=== PATIENT | male | born 1945 | race Caucasian/White ===

== ENCOUNTER 2016-12-02 08:00 | Outpatient (CLI) | payer MEDICARE, OTHER | END 2016-12-02 08:01 | disposition home or self-care (01) | DX: I10 Essential (primary) hypertension (principal); Z12.5 Encounter for screening for malignant neoplasm of prostate; E78.2 Mixed hyperlipidemia; Z79.899 Other long term (current) drug therapy | CPT/HCPCS: 80053; 80061; 83036; 85025; G0103 ==

== ENCOUNTER 2018-04-01 08:09 | Emergency (ER) | payer MEDICARE, OTHER ==
[2018-04-01 08:23] VITALS: BP 146/90
[2018-04-01] MEDS ORDERED: DEXAMETHASONE 10 MG/ML VIAL PO STA (08:50)
--- NOTE | 2018-04-01 08:52 | ED Physician Documentation ---
PD HPI SKIN - Stated complaint Stated Complaint: R ARM RASHES - Chief complaint Chief Complaint: Wound - History obtained from History obtained from: Patient - History of Present Illness Timing - onset: Yesterday Timing - duration: Days (1) Timing - details: Gradual onset, Still present Location: RUE Quality / character: Itchy, Raised, Swelling Improved by: Other (liquid bandaid) Associated symptoms: No: Fever, Myalgias, Joint pain Contributing factors: Insect bite /sting Similar symptoms before: Has not had sx before Recently seen: Not recently seen - Additional information Additional information: 73-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 He did use some liquid Band-Aid on this to help with the itching which seemed to work. Review of Systems Constitutional: denies: Fever Ears: denies: Ear pain Nose: denies: Congestion Throat: denies: Sore throat Respiratory: denies: Cough GI: denies: Vomiting Skin: reports: Rash Musculoskeletal: reports: Extremity pain. denies: Neck pain, Back pain PD PAST MEDICAL HISTORY - Past Medical History Cardiovascular: Hypertension Respiratory: None Endocrine/Autoimmune: None GI: None : None HEENT: Chronic hearing loss Psych: Claustrophobia Musculoskeletal: Osteoarthritis, Gout Derm: None - Past Surgical History Ortho:  - Present Medications Home Medications: Ambulatory Orders Medication Instructions Recorded Confirmed Hydrochlorothiazide 12.5 mg PO DAILY 04/11/14 04/11/14 - Allergies Allergies/Adverse Reactions: Allergies Allergy/AdvReac Type Severity Reaction Status Date / Time No Known Drug Allergies Allergy Verified 04/11/14 09:21 PD ED PE NORMAL - Vitals Vital signs reviewed: Yes (hypertensive ) - General General: Alert and oriented X 3, No acute distress, Well developed/nourished - HEENT HEENT: Atraumatic, PERRL, EOMI - Respiratory Respiratory: No respiratory distress - Derm Derm: Normal color, Warm and dry - Extremities Extremities: No deformity, No edema, Other (over the volar surface of the forearm there is a non-specific "rash" with superficial erythema slightly raised and irregular. There is a central area of a raised bump that is also non- specific. ) - Neuro Neuro: No motor deficit, No sensory deficit Eye Opening: Spontaneous Motor: Obeys Commands Verbal: Oriented GCS Score: 15 - Psych Psych: Normal mood, Normal affect Results - Vitals Vitals: Vital Signs - 24 hr 04/01/18 08:21 Temperature 36.0 C L Heart Rate 68 Respiratory 18 Rate Blood Pressure 146/90 H O2 Saturation 99 Oxygen O2 Source Room air PD MEDICAL DECISION MAKING - ED course Complexity details: considered differential, d/w patient ED course: 73-year-old male moving some plants yesterday as developed a rash on his right forearm this most closely resembles a contact dermatitis and here in the emergency department he is administered dexamethasone 10 mg orally and he is instructed to clean the area and use hydrocortisone cream and Benadryl for the itching. - Sepsis Event Vital Signs: Vital Signs - 24 hr 04/01/18 08:21 Temperature 36.0 C L Heart Rate 68 Respiratory 18 Rate Blood Pressure 146/90 H O2 Saturation 99 Oxygen O2 Source Room air Departure - Departure Disposition: 01 Home, Self Care Clinical Impression: Contact dermatitis Qualifiers: Contact dermatitis type: irritant Contact dermatitis trigger: non-food plants Qualified Code(s): L24.7 - Irritant contact dermatitis due to plants, except food Instructions: ED Dermatitis Contact Follow-Up: Yohana Grant ARNP [Primary Care Provider] - Discharge Date/Time: 04/01/18 09:12
== END 2018-04-01 09:12 | disposition home or self-care (01) ==
LOC: ED 08:09
DX: L24.7 Irritant contact dermatitis due to plants, except food (principal); I10 Essential (primary) hypertension
CPT/HCPCS: 99282

== ENCOUNTER 2019-07-07 16:49 | Outpatient (CLI) | payer MEDICARE, OTHER ==
[2019-07-07 17:13] LABS: BASOPHILS # (AUTO) 0.1 10^3/uL (0.0-0.1); BASOPHILS % (AUTO) 0.8 %; EOSINOPHILS # (AUTO) 0.1 10^3/uL (0.0-0.7); EOSINOPHILS % (AUTO) 1.8 %; HGB - HEMOGLOBIN 13.8 g/dL (14.0-18.0); LYMPHOCYTES # (AUTO) 2.6 10^3/uL (1.5-3.5); LYMPHOCYTES % (AUTO) 35.9 %; MEAN CORPUSCULAR HEMOGLOBIN 29.6 pg (27.0-31.0); MEAN CORPUSCULAR HGB CONC 32.8 g/dL (32.0-36.0); MEAN CORPUSCULAR VOLUME 90.3 fL (80.0-94.0); MEAN PLATELET VOLUME 10.3 fL (7.4-11.4); MONOCYTES # (AUTO) 0.7 10^3/uL (0.0-1.0); MONOCYTES % (AUTO) 10.2 %; NEUTROPHILS # (AUTO) 3.7 10^3/uL (1.5-6.6); PLT - PLATELET COUNT 148 10^3/uL (130-450); RED BLOOD COUNT 4.66 10^6/uL (4.70-6.10); RED CELL DISTRIBUTION WIDTH 13.1 % (12.0-15.0); WHITE BLOOD COUNT 7.3 x10^3/uL (4.8-10.8)
[2019-07-07 17:25] LABS: ALBUMIN 4.9 g/dL (3.2-5.5); ALBUMIN/GLOBULIN RATIO 1.6 (1.0-2.2); BILIRUBIN,TOTAL 0.7 mg/dL (0.2-1.0); CALCIUM 9.8 mg/dL (8.5-10.3); CREATININE 0.8 mg/dL (0.6-1.2); TOTAL PROTEIN 7.9 g/dL (6.7-8.2)
[2019-07-07 18:03] LABS: THYROID STIMULATING HORMONE 1.54 uIU/mL (0.34-5.60)
[2019-07-07 18:05] LABS: FREE T4 (FREE THYROXINE) 0.78 ng/dL (0.58-1.64)
--- NOTE | 2019-07-08 16:49 | XRAY Report ---
Reason: RT HIP PAIN Procedure Date: 07/07/2019 Accession Number: [id number] / [id number] Procedure: XR - Hip w/Pelvis 2-3V RT CPT Code: FULL RESULT: EXAM: RIGHT HIP RADIOGRAPHY EXAM DATE: 07/07/2019 05:53 PM. HISTORY: Chronic right hip pain COMPARISONS: None. TECHNIQUE: AP pelvis, modified Dean, and frogleg lateral views. FINDINGS: Bones: No fractures or bone lesion. Femoral head/neck offset is decreased bilaterally. Joints: No dislocation. The hip joint space is mildly to severely diminished bilaterally, greater in the right hip. Soft Tissues: No soft tissue swelling. 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 RADIA
== END 2019-07-07 16:50 | disposition home or self-care (01) ==
LOC: DI 16:49
PROVIDERS: ATTEND Family Medicine
DX: M16.0 Bilateral primary osteoarthritis of hip (principal); M25.852 Other specified joint disorders, left hip; M25.851 Other specified joint disorders, right hip; Z00.00 Encounter for general adult medical examination without abnormal findings
CPT/HCPCS: 36415; 80053; 84439; 84443; 85025

== ENCOUNTER 2019-07-22 13:57 | Emergency (ER) | payer MEDICARE, OTHER ==
[2019-07-22 14:06] VITALS: BP 139/83
--- NOTE | 2019-07-22 15:00 | ED Physician Documentation ---
History of Present Illness - Stated complaint Stated Complaint: ARM WOUND - Chief complaint Chief Complaint: Wound - History obtained from History obtained from: Patient - History of Present Illness Timing: Today Pain level max: 2 Pain level now: 2 - Additonal information Additional information: Patient states that he thinks he may have a thorn in the right arm. Noted swelling earlier today. Seems to have resolved now. Nothing makes it better or worse Review of Systems Constitutional: denies: Fever PD PAST MEDICAL HISTORY - Past Medical History Past Medical History: Yes Cardiovascular: Hypertension Respiratory: None Endocrine/Autoimmune: None GI: None : None HEENT: Chronic hearing loss Psych: Claustrophobia Musculoskeletal: Osteoarthritis, Gout Derm: None - Past Surgical History Past Surgical History: No Ortho:  - Present Medications Home Medications: Ambulatory Orders Medication Instructions Recorded Confirmed Hydrochlorothiazide 12.5 mg PO DAILY 04/11/14 04/11/14 - Allergies Allergies/Adverse Reactions: Allergies Allergy/AdvReac Type Severity Reaction Status Date / Time No Known Drug Allergies Allergy Verified 07/22/19 14:05 - Social History Does the pt smoke?: No Smoking Status: Never smoker Does the pt drink ETOH?: Yes Does the pt have substance abuse?: No - Immunizations Immunizations are current?: No - POLST Patient has POLST: No PD ED PE NORMAL - Vitals Vital signs reviewed: Yes - General General: Alert and oriented X 3, No acute distress - Derm Derm: Warm and dry - Extremities Extremities: Other (Right forearm with a small, nonbleeding wound. Pinpoint. No swelling or palpable foreign bodies. Neurovascular intact) - Neuro Neuro: Alert and oriented X 3 Results - Vitals Vitals: Oxygen O2 Source Room air PD MEDICAL DECISION MAKING - ED course Complexity details: considered differential, d/w patient ED course: No evidence of embedded thorn or other foreign body. Ultrasound was applied and no visible foreign body seen. No palpable foreign bodies. Warnings of infection and instructions on wound care given at bedside. Patient counseled regarding signs and symptoms for which I believe and urgent re-evaluation would be necessary. Patient with good understanding of and agreement to plan and is comfortable going home at this time This document was made in part using voice recognition software. While efforts are made to proofread this document, sound alike and grammatical errors may occur. Tdap given Departure - Departure Disposition: Home, Self Care Clinical Impression: Visit for wound check Condition: Good Instructions: ED Wound Care Follow-Up: Gonzalo Salazar MD [Primary Care Provider] - Comments: Return if you worsen. Return especially if you notice redness, swelling or drainage from the wound. Discharge Date/Time: 07/22/19 15:13
[2019-07-22] MEDS ORDERED: TETANUS/DIPHTHERIA/PERTUSSIS 0.5 ML SYRINGE IM ONE (15:06)
== END 2019-07-22 15:13 | disposition home or self-care (01) ==
LOC: ED 13:57
DX: S51.801A Unspecified open wound of right forearm, initial encounter (principal); W45.8XXA Other foreign body or object entering through skin, initial encounter; Y93.H2 Activity, gardening and landscaping; Y92.007 Garden or yard of unspecified non-institutional (private) residence as the place of occurrence of the external cause; Z23 Encounter for immunization; I10 Essential (primary) hypertension
CPT/HCPCS: 90471; 99282

== ENCOUNTER 2021-04-18 08:00 | Outpatient (CLI) | payer MEDICARE, OTHER ==
[2021-04-18 12:19] LABS: BASOPHILS % (AUTO) 0.7 %; EOSINOPHILS # (AUTO) 0.1 10^3/uL (0.0-0.7); EOSINOPHILS % (AUTO) 1.7 %; HCT - HEMATOCRIT 42.9 % (42.0-52.0); LYMPHOCYTES # (AUTO) 1.9 10^3/uL (1.5-3.5); LYMPHOCYTES % (AUTO) 32.9 %; MEAN CORPUSCULAR HGB CONC 32.6 g/dL (32.0-36.0); MEAN CORPUSCULAR VOLUME 92.1 fL (80.0-94.0); MEAN PLATELET VOLUME 10.6 fL (7.4-11.4); MONOCYTES # (AUTO) 0.5 10^3/uL (0.0-1.0); MONOCYTES % (AUTO) 8.5 %; NEUTROPHILS # (AUTO) 3.3 10^3/uL (1.5-6.6); PLT - PLATELET COUNT 156 10^3/uL (130-450); RED BLOOD COUNT 4.66 10^6/uL (4.70-6.10); RED CELL DISTRIBUTION WIDTH 13.2 % (12.0-15.0); WHITE BLOOD COUNT 5.9 x10^3/uL (4.8-10.8)
[2021-04-18 12:51] LABS: THYROID STIMULATING HORMONE 0.79 uIU/mL (0.34-5.60)
[2021-04-18 12:54] LABS: ALBUMIN 4.4 g/dL (3.2-5.5); ALBUMIN/GLOBULIN RATIO 1.3 (1.0-2.2); ALKALINE PHOSPHATASE 64 IU/L (42-121); ALT ALANINE AMINOTRANSFERASE 26 IU/L (10-60); AST ASPARTATE AMINOTRANSFERASE 22 IU/L (10-42); BILIRUBIN,TOTAL 0.8 mg/dL (0.2-1.0); BUN - BLOOD UREA NITROGEN 17 mg/dL (6-20); CALCIUM 9.3 mg/dL (8.5-10.3); CARBON DIOXIDE - CO2 26 mmol/L (21-32); CHLORIDE 105 mmol/L (101-111); CHOL/HDL RATIO 4.7 (<5.0); CHOLESTEROL 183 mg/dL; CREATININE 0.8 mg/dL (0.6-1.2); GFR - MDRD 94 (>89); GLUCOSE 118 mg/dL (70-100); HDL CHOLESTEROL 39 mg/dL; LDL CHOLESTEROL,CALCULATED 103 mg/dL; LDL/HDL RATIO 2.6 (<3.6); POTASSIUM 4.6 mmol/L (3.5-5.0); SODIUM 140 mmol/L (135-145); TOTAL PROTEIN 7.7 g/dL (6.7-8.2); TRIGLYCERIDES 203 mg/dL; VLDL CHOLESTEROL 41 mg/dL
== END 2021-04-18 23:59 | disposition home or self-care (01) ==
LOC: LAB.WCP 08:00
PROVIDERS: ATTEND Family Medicine
DX: Z00.00 Encounter for general adult medical examination without abnormal findings (principal); M16.11 Unilateral primary osteoarthritis, right hip
CPT/HCPCS: 36415; 80053; 80061; 84443; 85025; G0103; 83721; 84153

== ENCOUNTER 2022-03-26 14:55 | Emergency (ER) | payer MEDICARE ==
[2022-03-26 15:24] VITALS: BP 147/85
[2022-03-26 15:24] LABS: BASOPHILS # (AUTO) 0.1 10^3/uL (0.0-0.1); EOSINOPHILS # (AUTO) 0.2 10^3/uL (0.0-0.7); EOSINOPHILS % (AUTO) 2.3 %; HCT - HEMATOCRIT 42.2 % (42.0-52.0); HGB - HEMOGLOBIN 14.3 g/dL (14.0-18.0); LYMPHOCYTES # (AUTO) 2.4 10^3/uL (1.5-3.5); LYMPHOCYTES % (AUTO) 33.8 %; MEAN CORPUSCULAR HEMOGLOBIN 30.5 pg (27.0-31.0); MEAN CORPUSCULAR HGB CONC 33.9 g/dL (32.0-36.0); MEAN PLATELET VOLUME 10.5 fL (7.4-11.4); MONOCYTES # (AUTO) 0.5 10^3/uL (0.0-1.0); MONOCYTES % (AUTO) 7.2 %; NEUTROPHILS # (AUTO) 3.9 10^3/uL (1.5-6.6); NEUTROPHILS % (AUTO) 55.6 %; PLT - PLATELET COUNT 175 10^3/uL (130-450); RED BLOOD COUNT 4.69 10^6/uL (4.70-6.10); WHITE BLOOD COUNT 7.1 x10^3/uL (4.8-10.8)
--- NOTE | 2022-03-26 15:24 | XRAY Report ---
PROCEDURE: Chest 1 View X-Ray INDICATIONS: Chest Pain TECHNIQUE: One view of the chest was acquired. COMPARISON: Chest x-ray 01/12/2016 FINDINGS: Surgical changes and devices: None. Lungs and pleura: No pleural effusions or pneumothorax. Lungs are clear. Mediastinum: Mediastinal contours appear normal. Heart size is enlarged. Bones and chest wall: No suspicious bony lesions. Overlying soft tissues appear unremarkable. IMPRESSION: No acute pulmonary process. Reviewed by: Chelly Abraham MD on 03/26/2022 3:23 PM PDT Approved by: Chelly Abraham MD on 03/26/2022 3:23 PM PDT Station ID: [id number]
[2022-03-26 15:39] LABS: ALBUMIN 4.6 g/dL (3.2-5.5); ALBUMIN/GLOBULIN RATIO 1.4 (1.0-2.2); BILIRUBIN,TOTAL 0.6 mg/dL (0.2-1.0); CALCIUM 9.6 mg/dL (8.5-10.3); CREATININE 0.9 mg/dL (0.6-1.2); POTASSIUM 3.6 mmol/L (3.5-5.0); TOTAL PROTEIN 7.8 g/dL (6.7-8.2)
--- NOTE | 2022-03-26 15:59 | ED Physician Documentation ---
History of Present Illness - Stated complaint Stated Complaint: CHEST FLUTTERING - Chief complaint Chief Complaint: Cardiac - History obtained from History obtained from: Patient - Additonal information Additional information: The patient comes to the emergency department chief complaint of fluttering in his chest on and off for the last several days. The patient states that he has not felt quite right since he got very dehydrated about a month ago and was working in the hot environment. Patient states that he had to stop and go lay down on the floor because he did not feel well. The patient states that over the last month he has just felt tired but has not had any chest pain or shortness of breath. He states that when he gets the fluttering sensation, he will feel his heartbeat normally for several beats and then he will have a pause of a couple of seconds. Patient states that then his heart beats normally again and then he has another pause. He states he is occasionally felt a little lightheaded but has never lost consciousness. Patient states this will go on for a couple of minutes and it is usually after he is finished work. Then, it stops. Patient denies any symptoms right now. He does state he stopped drinking coffee yesterday. Patient denies any alcohol use. He does not have any cardiac history. He has a history of hypertension but has not been on meds for several years. No other complaints at this time. Review of Systems Ten Systems: 10 systems reviewed and negative Constitutional: reports: Reviewed and negative Eyes: reports: Reviewed and negative Ears: reports: Reviewed and negative Nose: reports: Reviewed and negative Throat: reports: Reviewed and negative Cardiac: reports: Palpitations Respiratory: reports: Reviewed and negative GI: reports: Reviewed and negative : reports: Reviewed and negative Skin: reports: Reviewed and negative Musculoskeletal: reports: Reviewed and negative Neurologic: reports: Reviewed and negative Psychiatric: reports: Reviewed and negative Endocrine: reports: Reviewed and negative Immunocompromised: reports: Reviewed and negative PD PAST MEDICAL HISTORY - Past Medical History Cardiovascular: Hypertension Respiratory: None Endocrine/Autoimmune: None GI: None : None HEENT: Chronic hearing loss Psych: Claustrophobia Musculoskeletal: Osteoarthritis, Gout Derm: None - Past Surgical History Past Surgical History: No Ortho:  - Present Medications Home Medications: Ambulatory Orders Medication Instructions Recorded Confirmed No Known Home Medications 03/26/22 03/26/22 - Allergies Allergies/Adverse Reactions: Allergies Allergy/AdvReac Type Severity Reaction Status Date / Time No Known Drug Allergies Allergy Verified 03/26/22 15:00 - Social History Does the pt smoke?: No Smoking Status: Never smoker Does the pt drink ETOH?: Yes Does the pt have substance abuse?: No - Immunizations Immunizations are current?: No - POLST Patient has POLST: No PD ED PE NORMAL - Vitals Vital signs reviewed: Yes - General General: Alert and oriented X 3, No acute distress, Well developed/nourished - HEENT HEENT: Atraumatic, PERRL, EOMI, Moist mucous membranes - Neck Neck: Supple, no meningeal sign - Cardiac Cardiac: RRR, No murmur, Strong equal pulses - Respiratory Respiratory: No respiratory distress, Clear bilaterally - Abdomen Abdomen: Soft, Non tender, Non distended - Derm Derm: Normal color, Warm and dry, No rash - Extremities Extremities: No deformity, No edema - Neuro Neuro: Alert and oriented X 3, 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5 MCHC 33.9 RDW 13.0 Plt Count 175 MPV 10.5 Neut # (Auto) 3.9 Lymph # (Auto) 2.4 [place] # (Auto) 0.5 Eos # (Auto) 0.2 Baso # (Auto) 0.1 Absolute Nucleated RBC 0.00 Nucleated RBC % 0.0 Sodium 137 Potassium 3.6 Chloride 105 Carbon Dioxide 23 Anion Gap 9.0 BUN 19 Creatinine 0.9 Estimated GFR (MDRD) 82 L Glucose 123 H Calcium 9.6 Total Bilirubin 0.6 AST 26 ALT 25 Alkaline Phosphatase 67 Troponin I High Sens 15.2 Total Protein 7.8 Albumin 4.6 Globulin 3.2 Albumin/Globulin Ratio 1.4 Lipase 28 PD MEDICAL DECISION MAKING - ED course Complexity details: reviewed results, re-evaluated patient, considered differential, d/w patient ED course: The patient was well-appearing In the ED, and was noted to have 1 PVC on the monitor during our conversation. However, the patient was distracted with something else at the time and was not sure if he felt a pause when he at that PVC. Laboratory studies were obtained and normal. His EKG did not show any concerning findings and patient is in a normal sinus rhythm with no ectopy on EKG. I felt the patient is stable for discharge home. We have discussed that he should follow-up with his primary care physician to discuss wearing an event monitor to further evaluate his episodes of palpitations. He also needs to discuss getting back on antihypertensives, as his blood pressures been mild to moderately elevated while in the emergency department. Departure - Departure Disposition: 01 Home, Self Care Clinical Impression: Palpitations with regular cardiac rhythm Hypertension Qualifiers: Hypertension type: unspecified Qualified Code(s): I10 - Essential (primary) hypertension Condition: Stable Instructions: ED Palpitations, ED HTN Established Comments: Your labs, EKG, and chest x-ray look good. You has had a couple of extra beats on the monitor while you have been here and most likely, this is what is causing your sensation of palpitations. The beats that have been visualized are very common and can create the "pause" that you are sometimes feeling, but in general, are benign and not likely to cause any significant issues. You should call your primary doctor as soon as possible to set up the next appointment micahnazia cherry to discuss wearing an event monitor and also, to address your high blood pressure. Your blood pressure has been higher than normal while in the emergency department, and especially with palpitations, it would be good for you to be sure you are blood pressure is controlled. If you develop severe chest pain or shortness of breath, if you pass out, please return to the emergency department.
== END 2022-03-26 16:16 | disposition home or self-care (01) ==
LOC: ED 14:55
DX: I10 Essential (primary) hypertension (principal); R00.2 Palpitations
CPT/HCPCS: 36415; 80053; 83690; 84484; 85025; 93005; 99284

== ENCOUNTER 2022-04-18 14:23 | Outpatient (CLI) | payer MEDICARE | END 2022-04-18 14:24 | disposition home or self-care (01) | LOC: MAC.MOP 14:23 | PROVIDERS: ATTEND Family Medicine | DX: R00.2 Palpitations (principal) | CPT/HCPCS: 93246 ==

== ENCOUNTER 2022-04-25 15:33 | Outpatient (CLI) | payer MEDICARE | END 2022-04-25 15:34 | disposition home or self-care (01) | LOC: MAC.MOP 15:33 | PROVIDERS: ATTEND Family Medicine | DX: R00.2 Palpitations (principal) | CPT/HCPCS: 93246 ==

== ENCOUNTER 2024-02-27 09:50 | Outpatient (CLI) | payer MEDICARE ==
--- NOTE | 2024-02-27 14:15 | Ultrasound Report ---
PROCEDURE: Soft Tissue Head or Neck INDICATIONS: THYROID NODULE TECHNIQUE: Real-time scanning was performed of the thyroid gland, with image documentation. COMPARISON: CT angiogram of the neck dated 01/04/2024 FINDINGS: Right: Thyroid lobe measures 4.4 x 2.7 x 2.3 cm. Left: Thyroid lobe measures 4.4 x 1.8 x 2.0 cm Isthmus: 0.4 cm thick. Echotexture: Homogeneous. Nodule number: One Location: Right inferior Size: 1.8 x 2.3 x 1.7 cm. Composition: Solid (2 points). Echogenicity: Isoechoic (1 point). Shape: wider than tall (0 points). Margins: Smooth (0 points). Echogenic foci: None (0 points). Total points: 3 ACR TI-RADS category: TI-RADS 3: Mildly suspicious. Nodule number: Two Location: Left inferior lateral Size: 0.7 x 0.4 x 0.6 cm. Composition: Solid (2 points). Echogenicity: Hypoechoic (2 points). Shape: wider than tall (0 points). Margins: Smooth (0 points). Echogenic foci: None (0 points). Total points: 4 ACR TI-RADS category: TI-RADS 4: Moderately suspicious. Nodule number: Three Location: Left superior Size: 0.8 x 0.9 x 0.5 cm. Composition: Cystic / almost completely cystic (0 points). Echogenicity: Anechoic (0 points). Shape: wider than tall (0 points). Margins: Smooth (0 points). Echogenic foci: None (0 points). Total points: 0 ACR TI-RADS category: TI-RADS 1: Benign. IMPRESSION: Isoechoic posterior, inferior right thyroid lobe nodule versus pyramidal lobe correlating with CT fin ding of possible right thyroid nodule. This has imaging features of a mildly suspicious (TI-RADS 3) n odule and per consensus criteria does not meet criteria for fine-needle aspiration. Recommend follow- up ultrasound in one year to document continued stability. Additionally, this nodule is deep and post erior and approximates the superior mediastinum with several adjacent large vessels. This would not b e accessible for fine-needle aspiration and if tissue sampling is required in the future, excisional biopsy may be required. ACR TI-RADS definitions and recommendations: TI-RADS 1 (benign): 0 points. FNA not needed. TI-RADS 2 (not suspicious): 2 points. FNA not needed. TI-RADS 3 (mildly suspicious): 3 points. "FNA if 2.5 cm or larger, follow up if 1.5 cm or larger (at 1, 3, and 5 years). TI-RADS 4 (moderately suspicious): 4-6 points. "FNA if 1.5 cm or larger, follow up if 1 cm or larger (at 1, 2, 3, and 5 years). TI-RADS 5 (highly suspicious): 7 points or more. "FNA if 1 cm or larger, follow up if 0.5 cm or larger (every year for 5 years). Reviewed by: Cruz Roberts MD on 02/27/2024 2:14 PM PDT Approved by: Cruz Roberts MD on 02/27/2024 2:14 PM PDT Station ID: [id number]
== END 2024-02-27 09:51 | disposition home or self-care (01) ==
LOC: DI 09:50
PROVIDERS: ATTEND Family Medicine
DX: E04.2 Nontoxic multinodular goiter (principal); R23.8 Other skin changes; H81.93 Unspecified disorder of vestibular function, bilateral; R03.0 Elevated blood-pressure reading, without diagnosis of hypertension; Z12.5 Encounter for screening for malignant neoplasm of prostate
CPT/HCPCS: 36415; 76536; 80053; 80061; 84439; 84443; 84481; 85025; G0103; 83721; 84153

== ENCOUNTER 2024-02-27 11:52 | Outpatient (CLI) | payer MEDICARE ==
[2024-02-27 12:28] LABS: BASOPHILS # (AUTO) 0.1 10^3/uL (0.0-0.1); BASOPHILS % (AUTO) 0.9 %; EOSINOPHILS # (AUTO) 0.2 10^3/uL (0.0-0.7); EOSINOPHILS % (AUTO) 2.3 %; HCT - HEMATOCRIT 43.2 % (42.0-52.0); HGB - HEMOGLOBIN 14.3 g/dL (14.0-18.0); LYMPHOCYTES # (AUTO) 2.4 10^3/uL (1.5-3.5); LYMPHOCYTES % (AUTO) 35.2 %; MEAN CORPUSCULAR HGB CONC 33.1 g/dL (32.0-36.0); MEAN CORPUSCULAR VOLUME 90.6 fL (80.0-94.0); MEAN PLATELET VOLUME 10.3 fL (7.4-11.4); MONOCYTES # (AUTO) 0.7 10^3/uL (0.0-1.0); MONOCYTES % (AUTO) 9.6 %; NEUTROPHILS # (AUTO) 3.6 10^3/uL (1.5-6.6); NEUTROPHILS % (AUTO) 51.7 %; PLT - PLATELET COUNT 163 10^3/uL (130-450); RED BLOOD COUNT 4.77 10^6/uL (4.70-6.10); RED CELL DISTRIBUTION WIDTH 12.9 % (12.0-15.0); WHITE BLOOD COUNT 6.9 x10^3/uL (4.8-10.8)
[2024-02-27 12:50] LABS: ALBUMIN 4.6 g/dL (3.2-5.5); ALBUMIN/GLOBULIN RATIO 1.8 (1.0-2.2); ALKALINE PHOSPHATASE 70 IU/L (42-121); ALT ALANINE AMINOTRANSFERASE 24 IU/L (10-60); AST ASPARTATE AMINOTRANSFERASE 18 IU/L (10-42); BILIRUBIN,TOTAL 0.7 mg/dL (0.2-1.0); BUN - BLOOD UREA NITROGEN 22 mg/dL (6-20); CALCIUM 9.8 mg/dL (8.5-10.3); CARBON DIOXIDE - CO2 28 mmol/L (21-32); CHLORIDE 106 mmol/L (101-111); CHOL/HDL RATIO 2.9 (<5.0); CHOLESTEROL 106 mg/dL; CREATININE 1.1 mg/dL (0.6-1.3); GFR - MDRD 65 (>89); GLUCOSE 103 mg/dL (74-104); HDL CHOLESTEROL 37 mg/dL; LDL CHOLESTEROL,CALCULATED 39 mg/dL; LDL/HDL RATIO 1.1 (<3.6); POTASSIUM 4.5 mmol/L (3.5-4.5); SODIUM 139 mmol/L (135-145); TOTAL PROTEIN 7.1 g/dL (6.4-8.9); TRIGLYCERIDES 149 mg/dL (48-352); VLDL CHOLESTEROL 30 mg/dL
[2024-02-27 13:03] LABS: THYROID STIMULATING HORMONE 1.01 uIU/mL (0.34-5.60)
== END 2024-02-27 11:53 | disposition home or self-care (01) ==
LOC: LAB 11:52
PROVIDERS: ATTEND Emergency Medicine
DX: E04.1 Nontoxic single thyroid nodule (principal); R23.8 Other skin changes; H81.93 Unspecified disorder of vestibular function, bilateral; R03.0 Elevated blood-pressure reading, without diagnosis of hypertension; Z12.5 Encounter for screening for malignant neoplasm of prostate
CPT/HCPCS: 36415; 80053; 80061; 84439; 84443; 84481; 85025; G0103; 83721; 84153

== ENCOUNTER 2024-03-01 16:08 | Emergency (ER) | payer MEDICARE ==
[2024-03-01 16:14] VITALS: O2SAT 100
--- NOTE | 2024-03-01 16:24 | ED Physician Documentation ---
PD HPI MALE - Stated complaint Stated Complaint: R SIDE PX - Chief complaint Chief Complaint: Abd Pain - History obtained from History obtained from: Patient - Additional information Additional information: 79yoM presents by private vehicle from home for R sided abdominal/back pain with nausea and vomiting. Pain intermittent yesterday, constant today. Associated nausea and vomiting. Somewhat similar to a kidney stone patient had several years ago. Denies issues urinating Review of Systems Constitutional: denies: Fever, Chills Cardiac: denies: Chest pain / pressure, Palpitations, Calf pain Respiratory: denies: Dyspnea GI: reports: Abdominal Pain, Nausea, Vomiting. denies: Constipation, Diarrhea : denies: Dysuria, Frequency, Hesitancy, Unable to Void Neurologic: denies: Generalized weakness, Focal weakness, Numbness PD PAST MEDICAL HISTORY - Past Medical History Past Medical History: Yes Cardiovascular: Hypertension Respiratory: None Endocrine/Autoimmune: None GI: None : None HEENT: Chronic hearing loss Psych: Claustrophobia Musculoskeletal: Osteoarthritis, Gout Derm: None - Past Surgical History Past Surgical History: No - Present Medications Home Medications: Ambulatory Orders Medication Instructions Recorded Confirmed Ondansetron Odt [Zofran] 4 mg TL Q6H PRN #30 tablet 03/01/24 Oxycodone HCl/Acetaminophen 1 - 2 each PO Q6H PRN #14 tablet 03/01/24 [Percocet 5-325 mg Tablet] Tamsulosin [Flomax] 0.4 mg PO DAILY #30 cap 03/01/24 - Allergies Allergies/Adverse Reactions: Allergies Allergy/AdvReac Type Severity Reaction Status Date / Time No Known Drug Allergies Allergy Verified 03/01/24 16:34 - Social History Does the pt smoke?: No Smoking Status: Never smoker Does the pt drink ETOH?: Yes Does the pt have substance abuse?: No - Immunizations Immunizations are current?: No - POLST Patient has POLST: No PD ED PE NORMAL - Vitals Vital signs reviewed: Yes - General General: Alert and oriented X 3, Well developed/nourished, Other (uncomfortable, in pain) - Cardiac Cardiac: RRR, Strong equal pulses - Respiratory Respiratory: No respiratory distress, Clear bilaterally - Abdomen Abdomen: Soft, Other (Generalized tenderness to deep palpation RLQ) - Back Back: No spinal TTP, Other (R CVA TTP) - Derm Derm: Normal color, Warm and dry - Extremities Extremities: No deformity, No tenderness to palpate, Normal ROM s pain - Neuro Neuro: Alert and oriented X 3, 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, No motor deficit, Normal speech Results - Vitals Vitals: Oxygen O2 Source Room air - Labs Labs: Laboratory Tests 03/01/24 03/01/24 03/01/24 16:23 16:23 16:55 WBC 9.7 RBC 4.72 Hgb 14.2 Hct 42.3 MCV 89.6 MCH 30.1 MCHC 33.6 RDW 12.9 Plt Count 175 MPV 9.8 Neut # (Auto) 6.0 Lymph # (Auto) 2.5 [place] # (Auto) 1.0 Eos # (Auto) 0.2 Baso # (Auto) 0.1 Absolute Nucleated RBC 0.00 Nucleated RBC % 0.0 Sodium 138 Potassium 4.0 Chloride 105 Carbon Dioxide 26 Anion Gap 7.0 BUN 21 H Creatinine 1.1 Estimated GFR (MDRD) 65 L Glucose 125 H Calcium 10.2 Total Bilirubin 0.6 AST 21 ALT 27 Alkaline Phosphatase 71 Total Protein 7.5 Albumin 4.6 Globulin 2.9 Albumin/Globulin Ratio 1.6 Lipase 13 Urine Color YELLOW Urine Clarity CLEAR Urine pH 5.0 Ur Specific [place] >=1.030 H Urine Protein 30 H Urine Glucose (UA) NEGATIVE Urine Ketones NEGATIVE Urine Occult Blood SMALL H Urine Nitrite NEGATIVE Urine Bilirubin SMALL H Urine Urobilinogen 0.2 (NORMAL) Ur Leukocyte Esterase NEGATIVE Urine RBC 0-5 Urine WBC 0-3 Ur Squamous Epith Cells FEW Squamous Urine Crystals 3-5 Calcium Oxalate Urine Bacteria Rare Urine Casts 0-2 Hyaline Casts Ur Microscopic Review INDICATED Urine Culture Comments NOT INDICATED PD Medical Decision Making - ED course Complexity details: reviewed results, re-evaluated patient, considered differential, d/w patient ED course: R flank/abdominal pain with nausea/vomiting. Concern for stone. Labs, CT, pain medications ordered. Labs reviewed, normal kidney function. RBCs on UA, no evidence of infection. CT shows large R sided stone. Pain a "0.5/10" after single dose of morphine. Patient advised of lab/imaging findings as well as importance of f/u with urology. Pain, nausea meds, flomax sent to pharmacy of choice. ED return precautions discussed with patient and prior to discharge. Departure - Departure Disposition: Home, Self Care Clinical Impression: Kidney stone on right side Condition: Stable Instructions: ED Stone Renal W Colic Follow-Up: Ishmael Ruvalcaba MD [Provider Admit Priv/Credential] - Prescriptions: Tamsulosin [Flomax] 0.4 mg PO DAILY #30 cap Oxycodone HCl/Acetaminophen [Percocet 5-325 mg Tablet] 1 - 2 each PO Q6H PRN #14 tablet PRN Reason: pain Ondansetron Odt [Zofran] 4 mg TL Q6H PRN #30 tablet PRN Reason: Nausea / Vomiting Comments: You have a 1.4 cm kidney stone on your right-hand side. Please take the prescribed medications in order to help you pass the stone. Make sure to drink plenty of fluids and stay hydrated. Follow-up with urology, referral has been provided in your paperwork. If you notice severe pain despite taking her pain medications please return to the emergency department for repeat evaluation. You may take 400 mg of ibuprofen in addition to the prescribed pain medications. The pain medication prescribed has Tylenol in it, and you may take additional Tylenol at home for pain, be careful to take no more than 4000 mg total of Tylenol daily. [facility] Forms: PCP List Discharge Date/Time: 03/01/24 18:00
[2024-03-01 16:29] LABS: BASOPHILS # (AUTO) 0.1 10^3/uL (0.0-0.1); BASOPHILS % (AUTO) 0.8 %; EOSINOPHILS # (AUTO) 0.2 10^3/uL (0.0-0.7); EOSINOPHILS % (AUTO) 1.6 %; HCT - HEMATOCRIT 42.3 % (42.0-52.0); HGB - HEMOGLOBIN 14.2 g/dL (14.0-18.0); LYMPHOCYTES # (AUTO) 2.5 10^3/uL (1.5-3.5); LYMPHOCYTES % (AUTO) 25.9 %; MEAN CORPUSCULAR HEMOGLOBIN 30.1 pg (27.0-31.0); MEAN CORPUSCULAR HGB CONC 33.6 g/dL (32.0-36.0); MEAN CORPUSCULAR VOLUME 89.6 fL (80.0-94.0); MEAN PLATELET VOLUME 9.8 fL (7.4-11.4); MONOCYTES % (AUTO) 9.9 %; NEUTROPHILS % (AUTO) 61.5 %; PLT - PLATELET COUNT 175 10^3/uL (130-450); RED BLOOD COUNT 4.72 10^6/uL (4.70-6.10); RED CELL DISTRIBUTION WIDTH 12.9 % (12.0-15.0); WHITE BLOOD COUNT 9.7 x10^3/uL (4.8-10.8)
[2024-03-01] MEDS: KETOROLAC 15 MG/ML VIAL IVP STA (16:29)
[2024-03-01] MEDS: ONDANSETRON 4 MG/2 ML VIAL IVP STA (16:30)
[2024-03-01] MEDS: SODIUM CHLORIDE 0.9% 1,000 ML IV STA (16:30)
--- NOTE | 2024-03-01 16:46 | CT Report ---
PROCEDURE: Abdomen/Pelvis WO INDICATIONS: R FLANK PAIN, HX STONES TECHNIQUE: A CT scan of the abdomen and pelvis was performed without the use of intravenous contrast. Images we re recorded and evaluated at appropriate window settings. Reformats: coronal and sagittal. For radiat ion dose reduction, the following was used: automated exposure control, adjustment of mA and/or kV ac cording to patient size. COMPARISON: None. FINDINGS: Image quality: There is limited visualization of the pelvis secondary to artifact from hip arthroplas ty. Lower chest: Unremarkable. Liver: No contour-deforming mass. Gallbladder: Unremarkable Biliary tree: No intrahepatic or extrahepatic dilation, accounting for age. Spleen: No splenomegaly. Pancreas: No pancreatic ductal dilation. Adrenals: No adrenal nodule. Kidneys and ureters: Left kidney demonstrates mild atrophy. No stones. No obstruction. Right kidney d emonstrates mild atrophy. Mild hydronephrosis. There is a 1.4 cm calcification, Hounsfield units 1481 within the distal renal pelvis/proximal ureter. Stomach, bowel and peritoneum: No gastric or small bowel dilation. No abnormal wall thickening. No pa thologic free fluid. Scattered colonic diverticula are present. Lymph nodes: No central or retroperitoneal adenopathy. Vessels: No infrarenal aortic aneurysm. Reproductive organs: Unremarkable. Bladder: Bladder wall thickness is normal, accounting for underdistention. No calcified bladder stone s. Pelvic lymph nodes: No adenopathy by size criteria. Bones: No aggressive osseous abnormality. Other: Bilateral fat-containing inguinal hernia. IMPRESSION: Mild right hydronephrosis secondary to ureteropelvic stone. Reviewed by: Chelly Abraham MD on 03/01/2024 4:44 PM PDT Approved by: Chelly Abraham MD on 03/01/2024 4:44 PM PDT Station ID: [id number]
[2024-03-01 16:47] LABS: ALBUMIN 4.6 g/dL (3.2-5.5); ALBUMIN/GLOBULIN RATIO 1.6 (1.0-2.2); BILIRUBIN,TOTAL 0.6 mg/dL (0.2-1.0); CALCIUM 10.2 mg/dL (8.5-10.3); CREATININE 1.1 mg/dL (0.6-1.3); TOTAL PROTEIN 7.5 g/dL (6.4-8.9)
[2024-03-01] MEDS: MORPHINE 2 MG/ML CARPUJECT IVP STA (17:04)
[2024-03-01 17:05] LABS: BILIRUBIN,URINE SMALL (NEGATIVE); GLUCOSE, URINE (UA) NEGATIVE (NEGATIVE); KETONES,URINE (UA) NEGATIVE (NEGATIVE); LEUKOCYTE ESTERASE, URINE NEGATIVE (NEGATIVE); NITRITE,URINE NEGATIVE (NEGATIVE); OCCULT BLOOD,URINE SMALL (NEGATIVE); PROTEIN,URINE 30 mg/dL (NEGATIVE); UROBILINOGEN,URINE 0.2 (NORMAL) E.U./dL (NORMAL)
[2024-03-01 17:13] LABS: CLARITY,URINE CLEAR (CLEAR)
[2024-03-01 17:33] LABS: BACTERIA,URINE Rare /HPF (None Seen); CASTS, URINE 0-2 Hyaline Casts /LPF; RBC,URINE 0-5 /HPF (0-5); SQUAMOUS EPITHELIAL CELL,UR FEW Squamous (<= Few); WBC,URINE 0-3 /HPF (0-3)
[2024-03-01 17:34] LABS: CRYSTALS,URINE 3-5 Calcium Oxalate /LPF
[2024-03-01 18:10] VITALS: BP 150/88
== END 2024-03-01 18:00 | disposition home or self-care (01) ==
LOC: ED 16:08
DX: N13.2 Hydronephrosis with renal and ureteral calculous obstruction (principal)
CPT/HCPCS: 36415; 80053; 81001; 81003; 83690; 85025; 87086; 96361; 96374; 96375; 99284

== ENCOUNTER 2024-03-11 14:53 | Outpatient (CLI) | payer MEDICARE ==
--- NOTE | 2024-03-11 20:59 | XRAY Report ---
PROCEDURE: Abdomen 1 V INDICATIONS: KIDNEY STONE TECHNIQUE: One view of the abdomen acquired. COMPARISON: CT abdomen/pelvis 03/01/2024. FINDINGS: Surgical changes and devices: None. Bowel: Bowel gas pattern is normal. Soft tissues: 12 mm calcification is seen in the right paraspinal region likely corresponding to the previously seen proximal ureteral calculus. Additional 8 mm calcification is seen projecting over the region of the right kidney. Visualized solid organ contours appear normal in size. Bones: No suspicious bony lesions. Right hip arthroplasty is present. Multilevel degenerative mahmood es are seen in the spine. IMPRESSION: Persistent calculus in the region of the right proximal ureter. Additional right renal calculus appea rs to have migrated laterally. Reviewed by: Tucker Escalera MD on 03/11/2024 8:57 PM PDT Approved by: Tucker Escalera MD on 03/11/2024 8:57 PM PDT Station ID: [id number]
== END 2024-03-11 14:54 | disposition home or self-care (01) ==
LOC: DI 14:53
PROVIDERS: ATTEND Urology
DX: N20.2 Calculus of kidney with calculus of ureter (principal)

== ENCOUNTER 2024-03-16 10:28 | Day surgery (SDC) | payer MEDICARE ==
[~2024-03-16 10:28] MED LIST: ceFAZolin 2 GM VIAL ONE
[2024-03-16] MEDS: LACTATED RINGERS 1,000 ML IV ONE ×2 (10:39→13:34)
[2024-03-16] MEDS ORDERED: fentaNYL 100 MCG/2 ML VIAL ONE (11:21)
[2024-03-16] MEDS ORDERED: PROPOFOL 200 MG/20 ML VIAL IVP ONE (11:21)
[2024-03-16] MEDS ORDERED: LIDOCAINE 2% URO-JET 5 ML SYRINGE UR ONE (11:24)
[2024-03-16] MEDS ORDERED: iohexoL-240 10 ML VIAL IVP ONE (11:24)
[2024-03-16] MEDS ORDERED: DEXAMETHASONE 4 MG/ML VIAL ONE ×2 (11:26→12:02)
[2024-03-16] MEDS ORDERED: ONDANSETRON 4 MG/2 ML VIAL ONE (11:26)
[2024-03-16] MEDS ORDERED: PHENYLEPHRINE HCL 0.5 MG/5 ML AMPULE ONE (11:59)
[2024-03-16] MEDS ORDERED: ROCURONIUM 50 MG/5 ML VIAL ONE (12:15)
[2024-03-16] MEDS ORDERED: SUGAMMADEX 200 MG/2 ML VIAL IVP ONE (12:20)
[2024-03-16] MEDS: LIDOCAINE 2% URO-JET 5 ML SYRINGE UR ONE (13:23)
[2024-03-16] MEDS ORDERED: HYDROcod/ACETAM 5/325 MG TABLET PO PRN (13:36)
--- NOTE | 2024-03-16 13:37 | Discharge Plan ---
Discharge Plan Problem Reviewed?: Yes Disposition: Home, Self Care Condition: Good Diet: Regular Activity Restrictions: No Restrictions Shower Restrictions: No Driving Restrictions: No Instruction Topics: Stents Ureteral No Smoking: If you smoke, Please STOP! Call for help.
--- NOTE | 2024-03-16 13:39 | OPERATIVE REPORT ---
Operative Report - General Procedure Date: 03/16/24 Planned Procedure: Cystoscopy, right ureteroscopy, laser therapy, stent Pre-Op Diagnosis: right ureteral stone Procedure Performed: Cystoscopy, right ureteral stent, transurethral resection of bladder tumor 3cm Post Op Diagnosis: right ureteral stone, bladder mass - Procedure Note Primary Surgeon: Jordon Anesthesia Provider: SG Chan Anesthesia Technique: General LMA Pathology: bladder mass Estimated Blood Loss (mL): 0 Findings: 3cm left lateral bladder mass, over left trigone - Other Other Information/Narrative: After informed consent was obtained the patient was brought to the OR and laid in the supine position. The patient was anesthetized per anesthesia protocols and prepped draped in usual sterile fashion in the dorsolithotomy position. A formal timeout was performed reconfirming the patient, procedure and laterality. 22 Croatian cystoscope was advanced easily to urinary bladder. The bladder inspected and full and he was noted to have multiple concerns. He had a large carpet of papillary tumors on the left side of his bladder, extending from the trigone to the left anterior bladder. It was about 3 cm in size. His left UO could not be seen definitively. He also had a small 0.5 cm papillary tumor on the right anterior bladder wall. His right ureteral orifice was orthotopic and normal. A sensor wire was placed up the right ureteral orifice to the kidney. A radiopaque stone could be seen in the proximal ureter. There was a stokes of urine with wire placement. We then used a 10 dilator to dilate the distal right ureter. We attempted to place a flexible ureteroscope next the wire but unfortunately the distal ureter was too tight. For this reason we decided to just place a stent to improve access in the future. A 6 Croatian 28 cm stent was placed with good curling noted in the kidney and good curling of the bladder We then placed a 26 Croatian resectoscope. Using a loop electrocautery and the bipolar setting we resected the previously mentioned lesions. Spot cautery was used for hemostasis. The samples were sent for analysis. His left ureteral orifice was not definitively identified. A 22 Croatian three-way Bourgeois catheter was placed and light CBI was started. The plan will be to watch him on CBI for an hour or so and then remove catheter and send him home. He will need further follow-up for his likely bladder cancer and his kidney stone. This concluded the procedure and the patient tolerated procedure well. He was brought back without further incident all counts were correct
[2024-03-16 13:41] VITALS: O2SAT 100
[2024-03-16 14:21] VITALS: BP 180/81
--- NOTE | 2024-03-16 14:26 | ANESTHESIA POST OP EVALUATION ---
Anesthesia Post Eval - Post Anesthesia Eval Vitals: Last Vital Signs Temp 36.2 C L 03/16/24 14:00 Pulse 71 03/16/24 14:00 Resp 16 03/16/24 14:00 BP 180/81 H 03/16/24 14:00 Pulse Ox 100 03/16/24 14:00 O2 Flow Rate CV Function Including HR & BP: Stable Pain Control: Satisfactory Nausea & Vomiting: Negative Mental Status: Baseline Respiratory Status: Airway Patent Hydration Status: Satisfactory Anesthesia Complications: None
--- NOTE | 2024-03-16 16:02 | XRAY Report ---
PROCEDURE: OR C-Arm Procedure INDICATIONS: STENT PLACEMENT FLUORO TIME: 0.1 sec TECHNIQUE: One view abdomen. COMPARISON: X-ray abdomen one view, 10/11/2023 CT abdomen and pelvis, 03/01/2024. FINDINGS: An intraoperative fluoroscopy image centered to the right kidney demonstrates a uterus sten t which is partially visualized. There is a 1.5 cm oval-shaped hyperdensity, either within the distal renal pelvis or proximal ureter. IMPRESSION: Placement of right ureteral stent under fluoroscopy. Reviewed by: Crystal Dent MD on 03/16/2024 4:01 PM PDT Approved by: Crystal Dent MD on 03/16/2024 4:01 PM PDT Station ID: [id number]
== END 2024-03-16 10:29 | disposition home or self-care (01) ==
LOC: SDS 10:28
PROVIDERS: ATTEND Urology
PROC: 0TBB8ZX Excision of Bladder, Via Natural or Artificial Opening Endoscopic, Diagnostic (ICD-10-PCS; principal; 2024-03-16 11:30)
DX: N20.1 Calculus of ureter (principal); C67.0 Malignant neoplasm of trigone of bladder
CPT/HCPCS: 52235; 52332; C1758; J2372; J7120; Q9966

== ENCOUNTER 2024-03-30 08:23 | Day surgery (SDC) | payer MEDICARE ==
[2024-03-30] MEDS ORDERED: ceFAZolin 2 GM VIAL ONE (08:30)
[2024-03-30] MEDS ORDERED: PROPOFOL 200 MG/20 ML VIAL IVP ONE ×2 (08:42→10:01)
[2024-03-30] MEDS ORDERED: ONDANSETRON 4 MG/2 ML VIAL ONE (08:42)
[2024-03-30] MEDS ORDERED: fentaNYL 100 MCG/2 ML VIAL ONE (08:42)
[2024-03-30] MEDS ORDERED: DEXAMETHASONE 4 MG/ML VIAL ONE (08:42)
[2024-03-30] MEDS ORDERED: ATROPINE ABBOJECT 1 MG/10 ML SYRINGE IVP PRN (08:45)
[2024-03-30] MEDS ORDERED: ePHEDrine 50 MG/ML VIAL IVP PRN (08:45)
[2024-03-30] MEDS ORDERED: NALOXONE 0.4 MG/ML VIAL IVP PRN (08:45)
[2024-03-30] MEDS ORDERED: HYDROmorphone 0.5 MG/0.5 ML SYRINGE IVP PRN (08:45)
[2024-03-30] MEDS ORDERED: fentaNYL 100 MCG/2 ML VIAL IVP PRN (08:45)
[2024-03-30] MEDS ORDERED: MORPHINE 2 MG/ML CARPUJECT IVP PRN (08:45)
[2024-03-30] MEDS ORDERED: ONDANSETRON 4 MG/2 ML VIAL IVP PRN ×2 (08:45→10:37)
[2024-03-30] MEDS: LACTATED RINGERS 1,000 ML IV ONE (08:50)
[2024-03-30] MEDS ORDERED: LACTATED RINGERS 1,000 ML IV SCH (09:00)
--- NOTE | 2024-03-30 09:02 | ANESTHESIA ---
Pre-Anesthesia VS, & Labs - Diagnosis right ureteral stone - Procedure cysto, right ureteroscopy, laser lithotripsy and stent placement Vital Signs: Temp Pulse Resp BP Pulse Ox O2 Flow Rate 36.4 C L 73 21 161/82 H 97 03/30/24 08:43 03/30/24 08:43 03/30/24 08:43 03/30/24 08:43 03/30/24 08:43 Height: 5 ft 10 in Weight (kg): 103 kg Body Mass Index: 32.5 BMI Classification: Obese - NPO >8 hours Last Fluid Intake: 30 black coffee Home Medications and Allergies Home Medications: Ambulatory Orders Aspirin EC [Ecotrin] 325 mg PO DAILY 03/26/24 Cholecalciferol [Vitamin D3] 25 mcg PO DAILY 03/26/24 Ubidecarenone/Vit E Acet [Co Q-10 100 mg Softgel] 1 each PO DAILY 03/26/24 Active Medications Atropine Sulfate (Atropine Abboject 1 Mg/10 Ml Syringe) 0.5 mg IVP Q5M PRN PRN Reason: Bradycardia Stop: 03/31/24 08:45 Ephedrine Sulfate (Ephedrine 50 Mg/Ml Vial) 10 mg IVP Q5M PRN PRN Reason: HYPOTENSION Stop: 03/31/24 08:45 Fentanyl (Fentanyl 100 Mcg/2 Ml Vial) 25 - 50 mcg IVP Q5M PRN PRN Reason: BREAKTHROUGH PAIN (2nd Choice) Stop: 03/31/24 08:45 Hydromorphone HCl (Hydromorphone 0.5 Mg/0.5 Ml Syringe) 0.2 - 0.6 mg IVP Q5M PRN PRN Reason: PAIN (First Choice) Stop: 03/31/24 08:45 Lactated Ringer's (Lr) 1,000 mls @ 100 mls/hr IV .Q10H CHEY Stop: 03/30/24 18:59 Morphine Sulfate (Morphine 2 Mg/Ml Carpuject) 2 - 4 mg IVP Q5M PRN PRN Reason: PAIN (3rd Choice) Stop: 03/31/24 08:45 Naloxone HCl (Naloxone 0.4 Mg/Ml Vial) 0.1 mg IVP Q2M PRN PRN Reason: RESP RATE <8 Stop: 03/31/24 08:45 Ondansetron HCl (Ondansetron 4 Mg/2 Ml Vial) 4 mg IVP ONCE PRN PRN Reason: N/V (First Choice) Stop: 03/31/24 08:45 Aspirin EC [Ecotrin] 325 mg PO DAILY 03/26/24 Cholecalciferol [Vitamin D3] 25 mcg PO DAILY 03/26/24 Ubidecarenone/Vit E Acet [Co Q-10 100 mg Softgel] 1 each PO DAILY 03/26/24 Allergies/Adverse Reactions: Allergies Allergy/AdvReac Type Severity Reaction Status Date / Time No Known Drug Allergies Allergy Verified 03/01/24 16:34 Anes History & Medical History - Anesthetic History Anesthesia Complications: reports: No previous complications - Medical History Cardiovascular: reports: High cholesterol Pulmonary: reports: None Gastrointestinal: reports: GERD, Colon polyps Urinary: reports: Kidney stones Neuro: reports: None Musculoskeletal: reports: Osteoarthritis, Gout Endocrine/Autoimmune: reports: None Skin: reports: None Smoking Status: Never smoker Psychosocial: reports: No issues indicated History of Cancer?: Yes (bladder) - Surgical History General: reports: Colonoscopy, Other Urologic: reports: Bladder surgery Orthopedic: reports: Hip replacement, Knee replacement Exam General: Alert, Oriented x3, Cooperative, No acute distress Dental: WNL Mouth Openin Fingerbreadth Neck Mobility: Reduced Mallampati classification: III Thyromental Distance: 4-6 cm Mental/Cognitive Status: Alert/Oriented X3, Normal for patient Plan Anesthesia Type: General Consent for Procedure(s) Verified and Reviewed: Yes Code Status: Attempt Resuscitation ASA classification: 2-Mild systemic disease Is this case an emergency?: No
[2024-03-30] MEDS ORDERED: LIDOCAINE 2% URO-JET 5 ML SYRINGE UR ONE (09:21)
[2024-03-30] MEDS ORDERED: GLYCOPYRROLATE 1 MG/5 ML VIAL ONE (10:08)
[2024-03-30] MEDS ORDERED: KETOROLAC 30 MG/ML VIAL ONE (10:29)
[2024-03-30] MEDS: iohexoL-240 10 ML VIAL IVP ONE (10:33)
[2024-03-30] MEDS: LIDOCAINE 2% URO-JET 5 ML SYRINGE UR ONE (10:33)
[2024-03-30] MEDS ORDERED: oxyCODONE 5 MG TABLET PO PRN (10:37)
[2024-03-30] MEDS: LACTATED RINGERS 400 ML IV ONE ×2 (10:38→10:55)
--- NOTE | 2024-03-30 10:43 | Discharge Plan ---
Discharge Plan Problem Reviewed?: Yes Disposition: Home, Self Care Condition: Good Prescriptions: Docusate Sodium 100Mg Capsule [Colace 100Mg Capsule] 100 mg PO DAILY #14 cap cephALEXin [Keflex] 500 mg PO ONCE #1 cap Phenazopyridine HCl [Pyridium] 200 mg PO TID #9 tablet oxyCODONE [Roxicodone] 5 mg PO Q4H PRN #10 tablet PRN Reason: Pain Diet: Regular Activity Restrictions: Additional Comments (as instructed) Shower Restrictions: No Driving Restrictions: No Instruction Topics: Transureth Bladder Tumor Resect Dc, Stents Ureteral Additional Instructions or Follow Up instructions: You have an appoint with Dr. Ruvalcaba on April 21 at 2:30 PM. Please arrive 15 minutes early. This appointment will be for a cystoscopy and bilateral stent removal. Please take antibiotic pill on the way to that appointment. You can eat before this appointment. You can drive yourself to and from this appointment. You can take all your normal medications before this appointment. No Smoking: If you smoke, Please STOP! Call for help. Follow-up with: Ishmael Ruvalcaba MD [Provider Admit Priv/Credential] -
--- NOTE | 2024-03-30 10:46 | OPERATIVE REPORT ---
Operative Report - General Procedure Date: 03/30/24 Planned Procedure: Cystoscopy, right ureteroscopy, laser lithotripsy, right ureteral stents, bilateral retrograde pyelogram, possible transurethral resection of bladder tumor Pre-Op Diagnosis: right ureteral stone, bladder cancer Procedure Performed: Cystoscopy, transurethral section of bladder tumor 2 cm, left retrograde pyelogram, right ureteroscopy, laser lithotripsy, right ureteral stent exchange, left ureteral stent placement Post Op Diagnosis: right ureteral stone, bladder cancer - Procedure Note Primary Surgeon: Jordon Anesthesia Provider: SG Chan Anesthesia Technique: General LMA Pathology: bladder lesion Estimated Blood Loss (mL): 1 Findings: well healing lesions, left trigone and right lateral wall large right UPJ stone radioopaque dusted Left trigone resected to find UO left RPG normal Stents placed bilaterally Complications: none - Other Other Information/Narrative: After informed consent was obtained the patient was brought to the OR and laid in the supine position. The patient was anesthetized per anesthesia protocols and prepped draped in the usual sterile fashion in the dorsolithotomy position. A formal timeout was performed reconfirming the patient, procedure and laterality. A 22 Rwandan cystoscope was advanced easily into urinary bladder. Bladder was inspected and full was noted to have the following features: A well- healing 2 cm lesion emanating from the left hemitrigone. The left UO could not be visualized. There was some fluffy debris but there were no obvious papillary lesions there. The rest of his bladder was notable for a another 1 cm well- healing fluffy lesion on the right lateral aspect of the bladder corresponding to prior resection site. There were no other papillary lesions. A stent was emanating from the right ureteral orifice. Using a 26 Rwandan resectoscope and loop electrocautery and the bipolar setting we resected his left hemitrigone to reveal the ureteral orifice which was blocked from edema and possibly cancer. The sections were sent for analysis and spot cautery used for hemostasis. A cystoscope was then we advanced into the bladder and his ureteral orifice mucosal island was cannulated with a sensor wire. A 5 Rwandan ureteral catheter was advanced into the distal ureter and a gentle retrograde pyelogram was performed showing a normal course of the left ureter and a normal-appearing left renal pelvis and calyces. There were no lesions or mass defects identified. A 6 Rwandan 26 cm stent was placed good curling noted in the kidney and good curling of the bladder on the left side. Turning to the right side, a sensor wire x 2 was advanced next to the old ureteral stent on the right side up into the kidney. There was a large perhaps 1/2 cm stone in the right UPJ which was radiopaque. The old stent was grasped and removed en bloc. A 12 x 14 46 cm ureteral access sheath was advanced up the wire into the proximal ureter, and a flexible ureteroscope was advanced up into the kidney. We could see there was a large smooth dark shah/green stone. Using a 200 m laser fiber at a power of 1.2 and a rate of 8 we dusted the stone into very tiny fragments. There were no significant fragments large enough to grasp. There were no more stones seen on fluoroscopy. His ureter was cleared under direct visualization. A 6 Rwandan 26 Ginger stent was placed with good curling noted in the kidney and good curling noted on the bladder on the right side. His bladder was emptied and Uro-Jet was placed. This concluded the procedure the patient tolerated the procedure well. He was brought to PACU for further incident he will follow-up in 3 weeks time for cystoscopy and bilateral stent removal in the office.
[2024-03-30 10:53] VITALS: O2SAT 100
[2024-03-30] MEDS ORDERED: iohexoL-240 10 ML VIAL IVP ONE (10:59)
[2024-03-30] MEDS: oxyCODONE 5 MG TABLET ONE (11:29)
[2024-03-30 11:36] VITALS: BP 153/87
--- NOTE | 2024-03-30 19:43 | ANESTHESIA POST OP EVALUATION ---
Anesthesia Post Eval - Post Anesthesia Eval Vitals: Last Vital Signs Temp 36.6 C 03/30/24 10:57 Pulse 78 03/30/24 11:24 Resp 16 03/30/24 11:24 BP 153/87 H 03/30/24 11:24 Pulse Ox 100 03/30/24 11:24 O2 Flow Rate CV Function Including HR & BP: Stable Pain Control: Satisfactory Nausea & Vomiting: Negative Mental Status: Baseline Respiratory Status: Airway Patent Hydration Status: Satisfactory Anesthesia Complications: None
--- NOTE | 2024-03-30 19:53 | XRAY Report ---
PROCEDURE: OR C-Arm Procedure INDICATIONS: RIGHT STENT EXCHANGE TECHNIQUE: 8 C-arm images in the operative suite COMPARISON: 03/16/2024 FINDINGS: 8 C-arm images were obtained in the operative suite during performance of right ureteral stent placem ent with no radiographic evidence of complications. FLUOROSCOPIC TIME: 0.2 minutes IMPRESSION: Operative C-arm imaging utilized during performance of right ureteral stent placement Reviewed by: Pablito Beal MD on 03/30/2024 7:52 PM PDT Approved by: Pablito Beal MD on 03/30/2024 7:52 PM PDT Station ID: [id number]
== END 2024-03-30 08:24 | disposition home or self-care (01) ==
LOC: SDS 08:23
PROVIDERS: ATTEND Urology
PROC: 0TF68ZZ Fragmentation in Right Ureter, Via Natural or Artificial Opening Endoscopic (ICD-10-PCS; 2024-03-30)
PROC: 0T778DZ Dilation of Left Ureter with Intraluminal Device, Via Natural or Artificial Opening Endoscopic (ICD-10-PCS; 2024-03-30)
PROC: 0T768DZ Dilation of Right Ureter with Intraluminal Device, Via Natural or Artificial Opening Endoscopic (ICD-10-PCS; 2024-03-30)
PROC: 0TBB8ZZ Excision of Bladder, Via Natural or Artificial Opening Endoscopic (ICD-10-PCS; principal; 2024-03-30 09:45)
DX: C67.0 Malignant neoplasm of trigone of bladder (principal); N20.1 Calculus of ureter; E66.9 Obesity, unspecified; Z68.32 Body mass index [BMI] 32.0-32.9, adult
CPT/HCPCS: 52235; 52332; 52356; A9270; C1758; C2617; J7120; Q9966